=== PATIENT | male | born 1960 | race Caucasian/White ===

== ENCOUNTER 2021-06-28 13:26 | Emergency (ER) | payer OTHER ==
[~2021-06-28 13:26] MED LIST: LIPITOR 10MG TA10 MG PO; LISINOPRIL 10MG10 MG PO; NAPROSYN250 MG PO; VIBRAMYCIN100 MG PO
[2021-06-28 14:53] LABS: INFLUENZA A NAA NEGATIVE (NEGATIVE)
[2021-06-28 14:59] LABS: CORONAVIRUS 2019 SARS-COV-2 POSITIVE (NEGATIVE)
[2021-06-28] MEDS ORDERED: ZPAK PO (15:05)
[2021-06-28] MEDS ORDERED: MEDROL 4MG DOSEP4 MG PO (15:05)
[2021-06-28] MEDS ORDERED: VENTOLIN HFA IN18 GM INH (15:05)
== END 2021-06-28 15:14 | disposition home or self-care (01) ==
LOC: FER 13:26
PROVIDERS: Nurse Practitioner Family
DX: U07.1 COVID-19 (principal); I10 Essential (primary) hypertension; Z88.1 Allergy status to other antibiotic agents
CPT/HCPCS: 71045; J1100; U0002

== ENCOUNTER 2021-07-01 09:36 | Emergency (ER) | payer OTHER ==
[~2021-07-01 09:36] MED LIST changes: +MEDROL 4MG DOSEP4 MG PO; +VENTOLIN HFA IN18 GM INH; +ZPAK PO
[2021-07-01] MEDS ORDERED: PREDNISONE 20MG20 MG PO (11:12)
[2021-07-01] MEDS ORDERED: ATARAX25 MG PO (11:12)
== END 2021-07-01 11:45 | disposition home or self-care (01) ==
LOC: FER 09:36
DX: L50.0 Allergic urticaria (principal); T36.3X5A Adverse effect of macrolides, initial encounter; J44.9 Chronic obstructive pulmonary disease, unspecified; F17.210 Nicotine dependence, cigarettes, uncomplicated
CPT/HCPCS: 99282; J1100